=== PATIENT | male | born 1955 | race African-American/Black ===

== ENCOUNTER 2018-11-26 12:05 | Emergency (ER) | payer BC ==
[2018-11-26 12:21] VITALS: PULSE 87; TEMP 97.8; BMI 25.0
[2018-11-26] MEDS ORDERED: KETOROLAC TROMETHAMINE 60 MG/2 ML VIAL IM ONE (12:55)
--- NOTE | 2018-11-26 12:58 | PDOC ---
History of Present Illness - General Chief Complaint: Back Pain Stated Complaint: BACK PAIN Time Seen by Provider: 11/26/18 12:47 History Source: Patient Exam Limitations: Clinical Condition - History of Present Illness Initial Comments: 11/26/18 12:53 Patient with no significant past medical history present with complaint of left- sided lower flank pain for week now which has been worsening. Patient reported presented to urgent care today for back pain and was referred to come to the emergency room. Patient reported improvement back pain with urination. Patient denies frequent urination, dysuria, burning with urination. Patient reported he had a history of urinary retention and hematuria couple years ago and was on Flomax for symptoms but hasn't had any symptoms in a while and not take any medication now. Patient denies fever, chills, body aches. Timing/Duration: 1 week Past History - Past Medical History Allergies/Adverse Reactions: Allergies Allergy/AdvReac Type Severity Reaction Status Date / Time No Known Allergies Allergy Verified 11/26/18 12:43 Home Medications: Ambulatory Orders Acetaminophen W/ Codeine #3 [Tylenol # 3 -] 1 tab PO Q6H PRN #20 tablet MDD 4 Asthma: No Cancer: No Cardiac Disorders: No CVA: No COPD: No - Surgical History GI Surgery: Yes (inguinal hernia) - Suicide/Smoking/Psychosocial Hx Smoking History: Never smoked Have you smoked in the past 12 months: No Information on smoking cessation initiated: No Hx Alcohol Use: No Drug/Substance Use Hx: No Review of Systems - Review of Systems Able to Perform ROS?: Yes Is the patient limited [place] proficient: No Constitutional: Yes: Malaise HEENTM: No: Symptoms Reported Respiratory: No: Symptoms reported Cardiac (ROS): No: Symptoms Reported ABD/GI: No: Constipated, Diarrhea, Nausea, Vomiting : Yes: See HPI, Flank Pain (left). No: Burning, Dysuria, Discharge, Frequency , Hematuria, Incontinence, Urgency, Testicular Mass, Testicular Pain Musculoskeletal: Yes: See HPI, Back Pain (left side) Neurological: No: Numbness, Paresthesia, Tingling, Weakness All Other Systems: Reviewed and Negative *Physical Exam - Vital Signs Last Vital Signs Temp Pulse Resp BP Pulse Ox 97.8 F 87 20 176/111 H 100 11/26/18 12:09 11/26/18 12:09 11/26/18 12:09 11/26/18 12:09 11/26/18 12:09 - Physical Exam Comments: 11/26/18 12:58 GENERAL: Well developed, well nourished. Awake and alert. No acute distress. NECK: Supple. Full ROM. CARDIOVASCULAR: Regular rate and rhythm. No murmurs, rubs, or gallops. Distal pulses are 2+ and symmetric. PULMONARY: No evidence of respiratory distress. Lungs clear to auscultation bilaterally. No wheezing, rales or rhonchi. ABDOMINAL: Soft. Non-tender. Non-distended. No rebound or guarding. No organomegaly. Normoactive bowel sounds. MUSCULOSKELETAL Normal range of motion at all joints. . moderate point tenderness to left flank area. mild CVAT of left side EXTREMITIES: No cyanosis. No clubbing. No edema. SKIN: Warm and dry. Normal capillary refill. No rashes. No jaundice. NEUROLOGICAL: Alert, awake, appropriate. Gait is normal without ataxia. PSYCHIATRIC: Cooperative. Good eye contact. Appropriate mood General Appearance: Yes: Nourished, Appropriately Dressed, Mild Distress Moderate Sedation - Procedure Monitoring Vital Signs: Procedure Monitoring Vital Signs Temperature 97.8 F 11/26/18 12:09 Pulse Rate 87 11/26/18 12:09 Respiratory Rate 20 11/26/18 12:09 Blood Pressure 176/111 H 11/26/18 12:09 O2 Sat by Pulse Oximetry (%) 100 11/26/18 12:09 ED Treatment Course - LABORATORY CBC & Chemistry Diagram: 11/26/18 13:04 11/26/18 13:04 - RADIOLOGY Radiology Studies Ordered: Category Date Time Status SPIRAL- RENAL-STONE CT [CT] Stat CT Scan 11/26/18 12:52 Ordered Medical Decision Making - Medical Decision Making 11/26/18 12:59 Patient with prior history of urinary retentions which has resolved present with complaint of one-week history of left flank pain which has been worsening since yesterday and improves when he voids. Exam significant for tenderness to left flank area with mild CVA tenderness on the left side. CBC, CMP and urine labs ordered. Toradol 60 mg IM ordered for pain. Spiral CT ordered to rule out kidney stone. Reassess after labs and imaging. 11/26/18 15:05 Chemistry labs shows elevated BUN and creatinine. CBC shows no elevated WBc. CT scan shows b/l hydronephrosis with hydrourether. Patient advised he will need to be admitted for CARMEN with hydronephrosis but patient declined and does not want to be admitted. Discussed with patient the risk of refusing admission for kidney failure and pt refused admission and only wants pain control and will follow-up with his urology. Patient advised to resume previously prescribed flomax by urologist and follow-up with urologist as soon as possible *DC/Admit/Observation/Transfer Diagnosis at time of Disposition: Hydroureter Hydronephrosis Qualifiers: Hydronephrosis type: other Qualified Code(s): N13.39 - Other hydronephrosis Renal failure, acute Qualifiers: Acute renal failure type: unspecified Qualified Code(s): N17.9 - Acute kidney failure, unspecified - Discharge Dispostion Disposition: AGAINST MEDICAL ADVICE Condition at time of disposition: Stable Decision to Admit order: No - Prescriptions Prescriptions: Acetaminophen W/ Codeine #3 [Tylenol # 3 -] 1 tab PO Q6H PRN #20 tablet MDD 4 PRN Reason: Back Pain - Referrals Referrals: Benji Suh MD [Staff Physician] - - Patient Instructions Printed Discharge Instructions: Hydronephrosis -- Adult Additional Instructions: Note: The patient insists on leaving the emergency dept and is signing out against medical advice. The patient understands the risks and complications that may result from the refusal of medical care and admission which includes and permanent disability. The patient has the mental capacity of understanding the risks of refusing care and is capable of making an informed decision. The patient was instructed to return to the emergency department should he change his mind regarding medical care or should his condition worsen. The patient signed the Against Medical Advice form. - Post Discharge Activity
[2018-11-26] MEDS ORDERED: KETOROLAC TROMETHAMINE 60 MG/2 ML VIAL ONE (12:59)
[2018-11-26 13:06] LABS: URINE APPEARANCE CLEAR; URINE BILIRUBIN NEGATIVE (<2.0 mg/dL); URINE COLOR STRAW; URINE GLUCOSE (UA) NEGATIVE (NEGATIVE); URINE KETONE NEGATIVE (NEGATIVE); URINE LEUK ESTERASE NEGATIVE (NEGATIVE); URINE NITRITE NEGATIVE (NEGATIVE); URINE PROTEIN NEGATIVE (NEGATIVE); URINE UROBILINOGEN NEGATIVE mg/dL (0.2-1.0)
[2018-11-26 13:11] LABS: URINE BACTERIA RARE /hpf (NONE SEEN)
[2018-11-26 13:16] LABS: BASO % 0.4 % (0-2.0); EOS % 1.1 % (0-4.5); HEMATOCRIT 41.6 % (35.4-49); HEMOGLOBIN 13.9 GM/dL (11.7-16.9); LYMPH % 21.6 % (8-40); MCH 22.8 pg (25.7-33.7); MCHC 33.4 g/dl (32.0-35.9); MEAN CELL VOLUME 68.3 fl (80-96); MEAN PLT VOLUME 8.2 fl (7.5-11.1); MONO % 6.6 % (3.8-10.2); NEUT % 70.3 % (42.8-82.8); PLATELET COUNT 174 K/MM3 (134-434); RBC 6.09 M/mm3 (4.00-5.60); RDW 14.8 % (11.9-15.9); WHITE BLOOD COUNT 7.8 K/mm3 (4.0-10.0)
[2018-11-26 13:47] LABS: ALBUMIN 4.1 g/dl (3.4-5.0); ALK PHOS 103 U/L (45-117); ANION GAP 4 MMOL/L (8-16); BILIRUBIN,TOTAL 0.5 mg/dL (0.2-1); BLOOD UREA NITROGEN 29 mg/dL (7-18); CALCIUM 9.3 mg/dL (8.5-10.1); CHLORIDE 108 mmol/L (98-107); CO2 29 mmol/L (21-32); CREATININE 2.3 mg/dL (0.55-1.3); GLUCOSE,RANDOM 87 mg/dL (74-106); POTASSIUM 4.1 mmol/L (3.5-5.1); SGOT/AST 15 U/L (15-37); SGPT/ALT 32 U/L (13-61); SODIUM 141 mmol/L (136-145); TOT PROT 7.5 g/dl (6.4-8.2)
[2018-11-26 14:11] VITALS: BP 166/107
== END 2018-11-26 14:27 | disposition left against medical advice (07) ==
LOC: JER 12:05 → JERFT 12:05
PROC: 3E0233Z Introduction of Anti-inflammatory into Muscle, Percutaneous Approach (ICD-10-PCS; principal; 2018-11-26)
DX: N13.39 Other hydronephrosis (principal); N17.9 Acute kidney failure, unspecified
CPT/HCPCS: 36415; 74176-TC; 80053; 81003; 81015; 85025; 87086; 99281-25